=== PATIENT | female | born 1995 | race African-American/Black ===

== ENCOUNTER 2021-05-10 19:40 | Emergency (ER) | payer BC ==
[~2021-05-10] VITALS: Ht 170.2 cm; Wt 75.0 kg
[2021-05-10] MEDS ORDERED: IV NORMAL SALINE 1000ML BAG 1,000 ML IV ONE (23:45)
[2021-05-10] MEDS ORDERED: ONDANSETRON PF 4 MG/2 ML VIAL. IVP ONE (23:45)
--- NOTE | 2021-05-10 23:50 | PHYS DOC ---
Past Medical History Past Medical History: No Pertinent History (JUNE ARTEAGA APRN) Past Surgical History: No Surgical History (JUNE ARTEAGA APRN) Smoking Status: Never Smoker Alcohol Use: None Drug Use: None (JUNE ARTEAGA APRN) General Adult EDM: Chief Complaint: NAUSEA/VOMITING/DIARRHEA HPI: HPI: Patient is a 25-year-old female that presents today with nausea and vomiting and lower abdominal pain. Patient states that around 11:00 today she started having abdominal cramps similar to her menstrual cycle cramps, she states she started her period and since that time she has been having nausea and vomiting and able to keep fluids down. Patient's vomitus is yellow in color, no blood noted. Patient states that she normally has a lot of menstrual cramps and nausea with her menstrual cycle monthly she states she follows with her primary care physician for her [employer] concerns, and she states that her abdominal cramps have never been this bad before. Patient denies chest pain, shortness of air, fever, or any trouble breathing. Patient states that she works in the [employer] industry and she has been tested twice this week for COVID-19 is tested negative both times. (JUNE ARTEAGA HOUSE MOVER) Review of Systems: Review of Systems: Constitutional: Denies fever or chills. [] Eyes: Denies change in visual acuity. [] HENT: Denies nasal congestion or sore throat. [] Respiratory: Denies cough or shortness of breath. [] Cardiovascular: Denies chest pain or edema. [] GI: Abdominal cramps, nausea and vomiting.] : Denies dysuria. [] Musculoskeletal: Denies back pain or joint pain. [] Integument: Denies rash. [] Neurologic: Denies headache, focal weakness or sensory changes. [] Endocrine: Denies polyuria or polydipsia. [] Lymphatic: Denies swollen glands. [] Psychiatric: Denies depression or anxiety. [] (JUNE ARTEAGA APRN) Heart Score: C/O Chest Pain: N/A Risk Factors: Risk Factors: DM, Current or recent (<one month) smoker, HTN, HLP, family history of CAD, obesity. Risk Scores: Score 0 - 3: 2.5% MACE over next 6 weeks - Discharge Home Score 4 - 6: 20.3% MACE over next 6 weeks - Admit for Clinical Observation Score 7 - 10: 72.7% MACE over next 6 weeks - Early Invasive Strategies (JUNE ARTEAGA APRN) C/O Chest Pain: N/A (AMBERLY COOL DO) Current Medications: Current Medications Medications (Trade) Dose Ordered Sig/Gail Start Time Stop Time Status Last Admin Dose Admin Ondansetron HCl (Zofran) 4 mg 1X ONCE 05/10/21 23:45 05/10/21 23:46 UNV Sodium Chloride 1,000 ml @ 999 mls/hr 1X ONCE 05/10/21 23:45 05/11/21 00:45 UNV (JUNE ARTEAGA APRN) Allergies: Allergies: Allergies Coded Allergies Type Severity Reaction Last Updated Verified No Known Drug Allergies 10/21/14 No (JUNE ARTEAGA APRN) Physical Exam: PE: Constitutional: Well developed, well nourished, mild distress, non-toxic appearance. [] HENT: Normocephalic, atraumatic, bilateral external ears normal, oropharynx moist, no oral exudates, nose normal. [] Eyes: PERRLA, EOMI, conjunctiva normal, no discharge. [] Neck: Normal range of motion, no tenderness, supple, no stridor. [] Cardiovascular:Heart rate regular rhythm, no murmur [] Lungs & Thorax: Bilateral breath sounds clear to auscultation [] Abdomen: Bowel sounds normal, soft, tenderness noted with palpation of the lower abdomen below the umbilicus no upper abdominal pain noted [] Skin: Warm, dry, no erythema, no rash. [] Back: No tenderness, no CVA tenderness. [] Extremities: No tenderness, no cyanosis, no clubbing, ROM intact, no edema. [] Neurologic: Alert and oriented X 3, normal motor function, normal sensory function, no focal deficits noted. [] Psychologic: Affect normal, judgement normal, mood normal. [] (JUNE ARTEAGA APRN) Current Patient Data: Labs: Laboratory Tests Test 05/10/21 23:35 05/10/21 23:36 05/11/21 00:05 White Blood Count 20.1 x10^3/uL Red Blood Count 4.60 x10^6/uL Hemoglobin 9.4 g/dL Hematocrit 31.0 % Mean Corpuscular Volume 67 fL Mean Corpuscular Hemoglobin 20 pg Mean Corpuscular Hemoglobin Concent 30 g/dL Red Cell Distribution Width 22.1 % Platelet Count 296 x10^3/uL Neutrophils (%) (Auto) 94 % Lymphocytes (%) (Auto) 4 % Monocytes (%) (Auto) 2 % Eosinophils (%) (Auto) 0 % Basophils (%) (Auto) 0 % Neutrophils # (Auto) 19.0 x10^3/uL Lymphocytes # (Auto) 0.8 x10^3/uL Monocytes # (Auto) 0.3 x10^3/uL Eosinophils # (Auto) 0.0 x10^3/uL Basophils # (Auto) 0.0 x10^3/uL Segmented Neutrophils % 93 % Lymphocytes % 2 % Monocytes % 5 % Platelet Estimate Adequate Hypochromasia Marked Poikilocytosis Slight Anisocytosis Mod Microcytosis Marked Ovalocytes Few Helmet Cells Occ Sodium Level 142 mmol/L Potassium Level 3.5 mmol/L Chloride Level 102 mmol/L Carbon Dioxide Level 23 mmol/L Anion Gap 17 Blood Urea Nitrogen 11 mg/dL Creatinine 0.9 mg/dL Estimated GFR (Cockcroft-Gault) 93.9 Glucose Level 114 mg/dL Calcium Level 9.1 mg/dL Urine Collection Type Unknown Urine Color Red Urine Clarity Cloudy Urine pH Urine Specific [place] Urine Protein mg/dL Urine Glucose (UA) mg/dL Urine Ketones (Stick) mg/dL Urine Blood Urine Nitrite Urine Bilirubin Urine Urobilinogen Dipstick mg/dL Urine Leukocyte Esterase Urine RBC Tntc /HPF Urine WBC 5-10 /HPF Urine Squamous Epithelial Cells Few /LPF Urine Bacteria Few /HPF Urine Mucus Mod /LPF Urine Test Negative Influenza Type A Antigen Negative Influenza Type B Antigen Negative SARS-CoV-2 Antigen (Rapid) Negative Current Medications Medications (Trade) Dose Ordered Sig/Gail Route PRN Reason Start Time Stop Time Status Last Admin Dose Admin Sodium Chloride 1,000 ml @ 999 mls/hr 1X ONCE IV 05/10/21 23:45 05/11/21 00:45 DC 05/10/21 23:47 Ondansetron HCl (Zofran) 4 mg 1X ONCE IVP 05/10/21 23:45 05/10/21 23:47 DC 05/10/21 23:54 Iohexol (Omnipaque 300 Mg/ml) 75 ml 1X ONCE IT 05/11/21 01:00 05/11/21 01:09 DC Info (CONTRAST GIVEN -- Rx MONITORING) 1 each PRN DAILY PRN MC SEE COMMENTS 05/11/21 01:15 05/13/21 01:14 Iohexol (Omnipaque 300 Mg/ml) 75 ml 1X ONCE IV 05/11/21 01:30 05/11/21 01:31 DC Vital Signs: Vital Signs Date Time Temp Pulse Resp B/P (MAP) Pulse Ox O2 Delivery O2 Flow Rate FiO2 05/10/21 23:01 99.3 60 18 138/79 (98) 100 Room Air 99.3 (JUNE ARTEAGA APRN) EKG: EKG: [] (JUNE ARTEAGA APRN) Radiology/Procedures: Radiology/Procedures: [] (JUNE ARTEAGA APRN) Course & Med Decision Making: Course & Med Decision Making Pertinent Labs and Imaging studies reviewed. (See chart for details) [address] scan awaiting for the results of that we will check out to Dr. Cool at this time. Patient is resting comfortably. (JUNE ARTEAGA APRN) Course & Med Decision Making Patient evaluated for chief complaint. Work-up consisted of laboratory analysis radiologic imaging. Results reviewed and discussed with patient treatment included antiemetic IV fluids. Patient states current pain and symptoms nausea vomiting diarrhea suprapubic discomfort similar and all present with her menstrual cycle. Patient states symptoms usually occur on day 1. Patient's nausea and vomiting diarrhea worse than previous episodes. Patient prescribed promethazine. Unable to assess patient's urine for urinary tract infection due to currently on menstrual cycle. I did prescribe patient Keflex advised to start if she experiences urinary frequency urgency or dysuria. (AMBERLY COOL I DO) [place] Disclaimer: Jennifer Disclaimer: This electronic medical record was generated, in whole or in part, using a voice recognition dictation system. (JUNE ARTEAGA APRN) Departure Departure Impression: Primary Impression: Abdominal pain Disposition: HOME / SELF CARE / HOMELESS Condition: STABLE Referrals: RITIKA CURIEL (PCP) Patient Instructions: Nausea and Vomiting, Pelvic Pain, Female Additional Instructions: Take Keflex if you started to have pain with urination Scripts Cephalexin (KEFLEX) 500 Mg Capsule 1 CAP PO BID, #20 CAP Prov: AMBERLY COOL I DO 05/11/21 Promethazine Hcl (PROMETHAZINE HCL) 25 Mg Tablet 1 TAB PO PRN Q6HRS, #20 TAB Prov: AMBERLY COOL I DO 05/11/21 JUNE ARTEAGA APRN May 10, 2021 23:50 AMBERLY COOL I DO May 11, 2021 03:34
[2021-05-10 23:51] LABS: BASO % 0 % (0-3); EOS % 0 % (0-3); HEMOGLOBIN 9.4 g/dL (12.0-15.5); LYMPH # 0.8 x10^3/uL (1.0-4.8); LYMPH % 4 % (24-48); MEAN CORPUSCULAR HEMOGLOBIN 20 pg (25-35); MEAN CORPUSCULAR HGB CONC 30 g/dL (31-37); MEAN CORPUSCULAR VOLUME 67 fL (79-100); MONO # 0.3 x10^3/uL (0.0-1.1); MONO % 2 % (0-9); NEUT % 94 % (31-73); PLATELET COUNT 296 x10^3/uL (140-400); RED CELL DISTRIBUTION WIDTH 22.1 % (11.5-14.5); WHITE BLOOD COUNT 20.1 x10^3/uL (4.0-11.0)
[2021-05-11 00:01] LABS: CLARITY,URINE CLOUDY; COLOR,URINE RED
[2021-05-11 00:02] LABS: CALCIUM 9.1 mg/dL (8.5-10.1); CREATININE 0.9 mg/dL (0.6-1.0); GFR 93.9; POTASSIUM 3.5 mmol/L (3.5-5.1)
[2021-05-11 00:03] LABS: U PREG PATIENT NEGATIVE (NEG)
[2021-05-11 00:09] LABS: RBC,URINE TNTC /HPF (0-2)
[2021-05-11 00:10] LABS: BACTERIA,URINE FEW /HPF (0-FEW)
[2021-05-11 00:39] LABS: % LYMPHS 2 % (24-48); % MONOS 5 % (0-10); % SEGS 93 % (35-66); ANISOCYTOSIS MOD; HELMET CELLS OCC; HYPOCHROMIA MARKED; MICROCYTOSIS MARKED; OVALOCYTES FEW; PLT ESTIMATE ADEQUATE (ADEQUATE); POIKILOCYTOSIS SLIGHT
[2021-05-11] MEDS ORDERED: IOHEXOL 300 MG/ML 100ML VIAL. IT ONE (01:00)
[2021-05-11] MEDS ORDERED: CONTRAST GIVEN. MC PRN (01:15)
[2021-05-11 01:29] LABS: INFLUENZA A PATIENT NEGATIVE (NEGATIVE); INFLUENZA B PATIENT NEGATIVE (NEGATIVE)
[2021-05-11] MEDS ORDERED: IOHEXOL 300 MG/ML 100ML VIAL. IV ONE (01:30)
--- NOTE | 2021-05-11 02:05 | RAD ---
CT abdomen and pelvis with contrast PQRS statement: CT scans at this facility use dose reduction including either automated exposure cont rol, iterative reconstructions, and /or weight based radiation dosing via mA and kV modification when appropriate to reduce radiation dose to as low as reasonably achievable. HISTORY: Abdominal pain and leukocytosis. Contrast: 75 mL Omnipaque 300 intravenous contrast. COMPARISON: CT abdomen October 21, 2014. Abdomen findings: Lung bases and bones are unremarkable. A couple of tiny 3 mm hypodense lesions or h epatic lobe images 23 and 24 are too small to characterize most likely small cysts or hemangiomas in this young patient. Gallbladder, pancreas, adrenal glands, spleen and kidneys are unremarkable. No heraclio wel obstruction. The appendix is negative diameter 4 mm filled with air to the tip. There is some col lapse of both large and small bowel. There may be some wall thickening of the transverse colon distal ly to the rectum. No abdominal fluid or adenopathy. Mesenteric edema. Pelvis findings: Mild pelvic free fluid in the cul-de-sac. Central uterine hypodensity most likely en dometrial fluid or proliferative endometrium related to the menstrual cycle. And bladder and ovaries are unremarkable. Mild rectosigmoid wall thickening. Bones are unremarkable. IMPRESSION: 1. Mild wall thickening of the colon from the transverse colon distally to the rectum may be due to m uscle spasm or low-grade inflammatory changes of colitis. 2. The appendix is negative. 3. Mild pelvic free fluid in the cul-de-sac. Electronically signed by: Mynor León MD (05/11/2021 2:02 AM) [facility]
[2021-05-11] MEDS ORDERED: KETOROLAC 30 MG/ML VIAL. IVP ONE (02:15)
[2021-05-11] MEDS ORDERED: ONDANSETRON PF 4 MG/2 ML VIAL. IVP ONE (02:15)
[2021-05-11 02:49] VITALS: BP 140/72
[2021-05-11] MEDS ORDERED: PROM25TA10 PO (03:32)
[2021-05-11] MEDS ORDERED: CEPH500C PO (03:33)
--- NOTE | 2021-05-11 15:45 | NUR ---
IP: Attempted to contact pt concerning covid results. No answer, left a voicemail to return the call.
--- NOTE | 2021-05-12 15:02 | NUR ---
IP: Attempted a second time to contact pt concerning covid results. Again no answer, left a voicemail to return the call.
[2021-05-12] MEDS ORDERED: AMOX1TAB61 PO (15:15)
[2021-05-12] MEDS ORDERED: ONDA4TAB12 PO (15:15)
== END 2021-05-11 03:46 | disposition home or self-care (01) ==
LOC: ER 19:40
DX: R10.33 Periumbilical pain (principal); R11.2 Nausea with vomiting, unspecified; Z20.822 Contact with and (suspected) exposure to COVID-19
CPT/HCPCS: 36415; 74177; 80048; 81001; 81025; 85007; 85025; 87086; 87426; 87804; 96361; 96374; 96375; 96376; 99285; J1885; J2405; J7030; Q9967; U0003; U0005

== ENCOUNTER 2021-05-12 13:01 | Emergency (ER) | payer BC ==
[~2021-05-12] VITALS: Ht 170.2 cm; Wt 72.5 kg
[~2021-05-12 13:01] MED LIST: CEPH500C PO; PROM25TA10 PO
[2021-05-12] MEDS ORDERED: DICYCLOMINE 20 MG/2 ML VIAL. IM ONE (14:00)
[2021-05-12] MEDS ORDERED: ONDANSETRON PF 4 MG/2 ML VIAL. IVP ONE ×2 (14:00→15:30)
[2021-05-12] MEDS ORDERED: IV NORMAL SALINE 1000ML BAG 1,000 ML IV SCH (14:00)
--- NOTE | 2021-05-12 14:07 | PHYS DOC ---
Past Medical History Past Medical History: No Pertinent History Past Surgical History: No Surgical History Smoking Status: Never Smoker Alcohol Use: None Drug Use: None General Adult EDM: Chief Complaint: NAUSEA/VOMITING/DIARRHEA HPI: HPI: Patient is a 25-year-old female who presents to the emergency department with nausea and vomiting since Sunday. Patient was seen in this emergency department for the same complaint on Sunday. She had blood work, urinalysis, Covid testing, CT abdomen and pelvis. Patient was discharged home with Keflex to presumably treat a urinary tract infection and she was discharged home with promethazine. She states she has been taking the promethazine as directed is not helping her nausea or vomiting. Patient denies diarrhea, blood in her stools or vomit, fevers, cough, shortness of breath. Review of Systems: Review of Systems: 14 body systems of the review of systems have been reviewed. See HPI for pertinent positive and negative responses, otherwise all other systems are negative, nonpertinent or noncontributory Heart Score: C/O Chest Pain: N/A Risk Factors: Risk Factors: DM, Current or recent (<one month) smoker, HTN, HLP, family history of CAD, obesity. Risk Scores: Score 0 - 3: 2.5% MACE over next 6 weeks - Discharge Home Score 4 - 6: 20.3% MACE over next 6 weeks - Admit for Clinical Observation Score 7 - 10: 72.7% MACE over next 6 weeks - Early Invasive Strategies Current Medications: Current Medications Medications (Trade) Dose Ordered Sig/Gail Start Time Stop Time Status Last Admin Dose Admin Dicyclomine HCl (Bentyl) 10 mg 1X ONCE 05/12/21 14:00 05/12/21 14:01 Ondansetron HCl (Zofran) 4 mg 1X ONCE 05/12/21 14:00 05/12/21 14:01 Sodium Chloride 1,000 ml @ 1,000 mls/hr Q1H 05/12/21 14:00 05/12/21 14:59 Allergies: Allergies: Allergies Coded Allergies Type Severity Reaction Last Updated Verified No Known Drug Allergies 10/21/14 No Physical Exam: PE: Constitutional: Well developed, well nourished, no acute distress, non-toxic appearance. [] HENT: Normocephalic, atraumatic, bilateral external ears normal, oropharynx moist, no oral exudates, nose normal. [] Eyes: PERRL, EOMI, conjunctiva normal, no discharge. [] Neck: Normal range of motion, no tenderness, supple, no stridor. [] Cardiovascular:Heart rate regular rhythm, no murmur [] Lungs & Thorax: Bilateral breath sounds clear to auscultation [] Abdomen: Bowel sounds normal, soft, no tenderness, no masses, no pulsatile masses. [] Skin: Warm, dry, no erythema, no rash. [] Back: No tenderness, no CVA tenderness. [] Extremities: No tenderness, no cyanosis, no clubbing, ROM intact, no edema. [] Neurologic: Alert and oriented X 3, normal motor function, normal sensory function, no focal deficits noted. [] Psychologic: Affect normal, judgement normal, mood normal. [] Current Patient Data: Labs: Laboratory Tests Test 05/12/21 13:35 05/12/21 14:15 05/12/21 14:35 Urine Collection Type Unknown Urine Color Yellow Urine Clarity Clear Urine pH 6.0 Urine Specific [place] >=1.030 Urine Protein 30 mg/dL Urine Glucose (UA) Negative mg/dL Urine Ketones (Stick) 40 mg/dL Urine Blood Large Urine Nitrite Negative Urine Bilirubin Negative Urine Urobilinogen Dipstick 0.2 mg/dL Urine Leukocyte Esterase Negative Urine RBC >40 /HPF Urine WBC 5-10 /HPF Urine Squamous Epithelial Cells Mod /LPF Urine Bacteria Few /HPF Urine Mucus Marked /LPF Urine Opiates Screen Neg Urine Methadone Screen Neg Urine Barbiturates Neg Urine Phencyclidine Screen Neg Urine Amphetamine/Methamphetamine Neg Urine Benzodiazepines Screen Neg Urine Cocaine Screen Neg Urine Cannabinoids Screen Pos Urine Ethyl Alcohol Neg White Blood Count 14.8 x10^3/uL Red Blood Count 4.61 x10^6/uL Hemoglobin 9.5 g/dL Hematocrit 30.3 % Mean Corpuscular Volume 66 fL Mean Corpuscular Hemoglobin 21 pg Mean Corpuscular Hemoglobin Concent 31 g/dL Red Cell Distribution Width 21.8 % Platelet Count 331 x10^3/uL Neutrophils (%) (Auto) 76 % Lymphocytes (%) (Auto) 19 % Monocytes (%) (Auto) 5 % Eosinophils (%) (Auto) 0 % Basophils (%) (Auto) 1 % Neutrophils # (Auto) 11.2 x10^3/uL Lymphocytes # (Auto) 2.8 x10^3/uL Monocytes # (Auto) 0.7 x10^3/uL Eosinophils # (Auto) 0.0 x10^3/uL Basophils # (Auto) 0.1 x10^3/uL Platelet Estimate Adequate Hypochromasia Marked Poikilocytosis Slight Anisocytosis Mod Microcytosis Marked Ovalocytes Present Sodium Level 143 mmol/L Potassium Level 4.0 mmol/L Chloride Level 104 mmol/L Carbon Dioxide Level 21 mmol/L Anion Gap 18 Blood Urea Nitrogen 11 mg/dL Creatinine 0.9 mg/dL Estimated GFR (Cockcroft-Gault) 93.9 BUN/Creatinine Ratio 12 Glucose Level 85 mg/dL Calcium Level 9.4 mg/dL Total Bilirubin 0.4 mg/dL Aspartate Amino Transf (AST/SGOT) 22 U/L Alanine Aminotransferase (ALT/SGPT) 23 U/L Alkaline Phosphatase 52 U/L Total Protein 9.0 g/dL Albumin 4.4 g/dL Albumin/Globulin Ratio 1.0 Lipase 67 U/L Influenza Type A Antigen Negative Influenza Type B Antigen Negative Current Medications Medications (Trade) Dose Ordered Sig/Gail Route PRN Reason Start Time Stop Time Status Last Admin Dose Admin Dicyclomine HCl (Bentyl) 10 mg 1X ONCE IM 05/12/21 14:00 05/12/21 14:01 DC 05/12/21 14:09 Sodium Chloride 1,000 ml @ 1,000 mls/hr Q1H IV 05/12/21 14:00 05/12/21 14:59 DC 05/12/21 14:32 Ondansetron HCl (Zofran) 4 mg 1X ONCE IVP 05/12/21 14:00 05/12/21 14:01 DC 05/12/21 14:32 EKG: EKG: [] Radiology/Procedures: Radiology/Procedures: [] Course & Med Decision Making: Course & Med Decision Making Pertinent Labs and Imaging studies reviewed. (See chart for details) Patient seen in the emergency department today for nausea and vomiting and lower abdominal cramping that started on Sunday. Patient was seen in this emergency department on Sunday and had leukocytosis which could be due to infection or her nausea and vomiting. No increase in symptoms just no resolution since being seen. She had a urinalysis performed and the culture came back negative, patient was discharged with Keflex to treat a urinary tract infection because the urine was obscured with blood. Patient also had a CT of her abdomen and pelvis performed that showed colitis. Patient was also discharged home with promethazine. She states that she has been taking the promethazine as directed but it is not helping with her vomiting. Patient states that she is on her menstrual cycle and has lower abdominal cramping normally. Patient has a low- grade fever at 99.7. Patient denies any cough, shortness of breath and she is not vaccinated for COVID-19. Blood work, urinalysis performed in the emergency department. Patient treated with IV fluids, nausea medication and pain medication. Patient's vital signs are stable at this time she is in no acute distress. Following treatment, she is not actively vomiting. Patient's white blood cell count has improved from her visit 2 days ago. Her urinalysis was negative. CMP unremarkable. Patient's urine was positive for marijuana, it is possible that her nausea and vomiting is due to hyperemesis from marijuana use. Patient will be discharged home with an antibiotic to treat the colitis that was seen on the CT scan of her abdomen and pelvis 2 days ago. Patient discharged home with Zofran to take for nausea if the promethazine is not helping. She was advised to discontinue marijuana use. Advised to increase her fluids, follow brat diet and avoid any spicy, greasy or fatty foods. I discussed with patient all findings and diagnostic testing as well as the need to follow-up with PCP for further evaluation and treatment or return to the ER if any new or worsening symptoms. Strict return precautions were also discussed at length. Patient voiced understanding and agreement with the plan. Patient is hemodynamically stable at the time of disposition. Dragon Disclaimer: Dragon Disclaimer: This electronic medical record was generated, in whole or in part, using a voice recognition dictation system. Departure Departure Impression: Primary Impression: Colitis Disposition: 01 HOME / SELF CARE / HOMELESS Condition: GOOD Referrals: RITIKA CURIEL (PCP) Patient Instructions: Colitis Additional Instructions: You were seen in the emergency department today for nausea and vomiting. Your blood work was unremarkable. Your urinalysis did not show any acute findings. Your rapid influenza test was negative. We tested you for COVID-19 and you will be notified of those results when they become available in approximately 1 to 2 days, please self isolate until you receive these results. I reviewed your CT scan of your abdomen and pelvis and you did have colitis which is inflammation of your intestines which could be viral or bacterial in nature. It is most likely viral in nature. However, we will treat you with an antibiotic if it is bacterial in nature. Please start and finish the antibiotic completely. You can discontinue the Keflex that you are previously prescribed for as you do not have a urinary tract infection. If the promethazine is not helping with your nausea, discontinue that and you can take Zofran that is being prescribed for you. You can take Tylenol and/or ibuprofen for your pain. You were positive for marijuana in your urine, oftentimes people do have intractable nausea and vomiting from marijuana use. I would advise you to discontinue marijuana use. Increase your fluids. Stick to a clear liquid diet today which includes soups, broths, Jell-O's, Gatorade. Following today you can stick to a bland diet, we recommend a brat diet which includes bananas, rice, applesauce and toast. Please avoid eating anything spicy, greasy or fatty. Follow-up with your primary care provider tomorrow regarding your ER visit. Please return to the emergency department if you develop worsening of your abdominal pain, high fevers refractory to treatment, intractable nausea or vomiting or any new or wo rsening concerns. Scripts Amoxicillin/Potassium Clav (AUGMENTIN 875-125 TABLET) 1 Each Tablet 1 TAB PO BID for 10 Days, #20 TAB 0 Refills Prov: NATHALIA SELF [employer] MANAGER 05/12/21 Ondansetron (ONDANSETRON ODT) 4 Mg Tab.rapdis 1 TAB PO PRN Q6-8HRS for 7 Days, #28 TAB 0 Refills Prov: NATHALIA SELF [employer] SERVICES MANAGER 05/12/21 NATHALIA SELF APRN May 12, 2021 14:07
[2021-05-12 14:13] VITALS: BP 136/75
[2021-05-12 14:13] LABS: BILIRUBIN,URINE NEGATIVE (NEG); CLARITY,URINE CLEAR; COLOR,URINE YELLOW; NITRITE,URINE NEGATIVE (NEG); PROTEIN,URINE 30 mg/dL (NEG-TRACE); UROBILINOGEN,URINE 0.2 mg/dL (0.2 mg/dL)
[2021-05-12 14:19] LABS: BARBITURATES NEG (NEG); BENZODIAZEPINES NEG (NEG); CANNABINOIDS POS (NEG); COCAINE NEG (NEG); METHADONE NEG (NEG); OPIATES NEG (NEG); PHENCYCLIDINE NEG (NEG)
[2021-05-12 14:21] LABS: AMPHETAMINE/METHAMPHETAMINE NEG (NEG)
[2021-05-12 14:24] LABS: RBC,URINE >40 /HPF (0-2)
[2021-05-12 14:24] LABS: BASO # 0.1 x10^3/uL (0.0-0.2); BASO % 1 % (0-3); EOS % 0 % (0-3); HEMATOCRIT 30.3 % (36.0-47.0); HEMOGLOBIN 9.5 g/dL (12.0-15.5); LYMPH # 2.8 x10^3/uL (1.0-4.8); LYMPH % 19 % (24-48); MEAN CORPUSCULAR HEMOGLOBIN 21 pg (25-35); MEAN CORPUSCULAR HGB CONC 31 g/dL (31-37); MEAN CORPUSCULAR VOLUME 66 fL (79-100); MONO # 0.7 x10^3/uL (0.0-1.1); MONO % 5 % (0-9); NEUT # 11.2 x10^3/uL (1.8-7.7); NEUT % 76 % (31-73); PLATELET COUNT 331 x10^3/uL (140-400); RED BLOOD COUNT 4.61 x10^6/uL (3.50-5.40); RED CELL DISTRIBUTION WIDTH 21.8 % (11.5-14.5); WHITE BLOOD COUNT 14.8 x10^3/uL (4.0-11.0)
[2021-05-12 14:29] LABS: BACTERIA,URINE FEW /HPF (0-FEW)
[2021-05-12 14:32] LABS: CALCIUM 9.4 mg/dL (8.5-10.1); CREATININE 0.9 mg/dL (0.6-1.0); GFR 93.9
[2021-05-12 14:47] LABS: ALBUMIN 4.4 g/dL (3.4-5.0); TOTAL BILIRUBIN 0.4 mg/dL (0.2-1.0)
[2021-05-12 14:52] LABS: ANISOCYTOSIS MOD; HYPOCHROMIA MARKED; MICROCYTOSIS MARKED; OVALOCYTES PRESENT; PLT ESTIMATE ADEQUATE (ADEQUATE); POIKILOCYTOSIS SLIGHT
[2021-05-12 15:06] LABS: INFLUENZA A PATIENT NEGATIVE (NEGATIVE); INFLUENZA B PATIENT NEGATIVE (NEGATIVE)
[2021-05-12] MEDS ORDERED: AMOX1TAB61 PO (15:15)
[2021-05-12] MEDS ORDERED: ONDA4TAB12 PO (15:15)
--- NOTE | 2021-05-13 14:13 | NUR ---
IP: Attempted to contact pt concerning covid results. No answer, left a voicemail to return the call.
--- NOTE | 2021-05-16 16:39 | NUR ---
IP: Informed pt of negative covid test. Pt verbalized understanding.
== END 2021-05-12 15:55 | disposition home or self-care (01) ==
LOC: ER 13:01
DX: K52.9 Noninfective gastroenteritis and colitis, unspecified (principal); Z20.822 Contact with and (suspected) exposure to COVID-19
CPT/HCPCS: 36415; 80053; 80307; 81001; 83690; 85025; 87086; 87804; 96361; 96372; 96374; 96376; 99284; J0500; J2405; J7030; U0003; U0005